=== PATIENT | male | born 1985 | race Caucasian/White ===

== ENCOUNTER 2022-08-17 09:40 | Outpatient (CLI) | payer OTHER, SELFPAY ==
[2022-08-17 15:10] LABS: Albumin* 4.7 g/dL (3.3-5.0); Chloride* 103 mmol/L (96-114); Potassium* 4.9 mmol/L (3.6-5.1); Sodium* 137 mmol/L (135-149)
[2022-08-17 15:12] LABS: Carbon Dioxide* 25 mmol/L (20-32); Cholesterol* 147 mg/dL (90-199); Creatinine* 0.9 mg/dL (0.5-1.5); Estimated Glomerular Filt Rate 114 ml/min
[2022-08-17 15:13] LABS: Alanine Aminotransferase* 24 U/L (4-50); Alkaline Phosphatase* 69 U/L (40-150); Aspartate Amino Transferase* 25 U/L (12-35); Bilirubin Total* 0.2 mg/dL (0.1-1.5); Blood Urea Nitrogen* 17 mg/dL (5-24); Calcium* 9.8 mg/dL (8.4-10.6); Glucose* 236 mg/dL (60-115); HDL Cholesterol* 45 mg/dL (>=40); LDL Cholesterol Calculated 82 mg/dL (<100); Total Protein* 7.2 g/dL (6.0-8.3); Triglycerides* 100 mg/dL (40-149)
[2022-08-17 22:21] LABS: Creatinine Urine 20.6 mg/dL
[2022-08-17 22:25] LABS: Microalbumin Creatinine Ratio 40 mg/g (0-30); Microalbumin Urine < 1 mg/dL
== END 2022-08-17 09:41 | disposition home or self-care (01) ==
PROVIDERS: PCP Family Medicine; Visit Provider Family Medicine
DX: Z00.00 Encounter for general adult medical examination without abnormal findings (principal); E13.9 Other specified diabetes mellitus without complications; E78.5 Hyperlipidemia, unspecified; F41.8 Other specified anxiety disorders; F98.8 Other specified behavioral and emotional disorders with onset usually occurring in childhood and adolescence; I10 Essential (primary) hypertension; J45.909 Unspecified asthma, uncomplicated
CPT/HCPCS: 80053; 80061; 82043; 82570

== ENCOUNTER 2023-06-04 08:28 | Outpatient (CLI) | payer OTHER, SELFPAY | END 2023-06-04 08:29 | disposition home or self-care (01) | LOC: NFLDREF 06-05 09:55 | PROVIDERS: PCP Family Medicine; Referring Provider Family Medicine; Visit Provider Family Medicine | DX: E13.9 Other specified diabetes mellitus without complications (principal); I10 Essential (primary) hypertension; E78.5 Hyperlipidemia, unspecified; F41.8 Other specified anxiety disorders; F98.8 Other specified behavioral and emotional disorders with onset usually occurring in childhood and adolescence; K21.9 Gastro-esophageal reflux disease without esophagitis | CPT/HCPCS: 80048; 80061; 82043; 82570 ==

== ENCOUNTER 2024-06-06 07:55 | Outpatient (CLI) | payer OTHER, SELFPAY | END 2024-06-06 07:56 | disposition home or self-care (01) | LOC: NFLDREF 06-08 12:01 | PROVIDERS: PCP Family Medicine; Referring Provider Family Medicine; Visit Provider Family Medicine | DX: E13.65 Other specified diabetes mellitus with hyperglycemia (principal); I10 Essential (primary) hypertension; E78.5 Hyperlipidemia, unspecified; Z79.4 Long term (current) use of insulin | CPT/HCPCS: 80053; 80061; 82043; 82570 ==

== ENCOUNTER 2024-12-04 07:57 | Outpatient (CLI) | payer OTHER, SELFPAY | END 2024-12-04 07:58 | disposition home or self-care (01) | LOC: NFLDREF 12-08 03:00 | PROVIDERS: PCP Family Medicine; Referring Provider Family Medicine; Visit Provider Family Medicine | DX: E13.65 Other specified diabetes mellitus with hyperglycemia (principal); E78.5 Hyperlipidemia, unspecified; I10 Essential (primary) hypertension; Z79.4 Long term (current) use of insulin | CPT/HCPCS: 80053; 80061; 82043; 82570 ==